=== PATIENT | male | born 1950 | race Caucasian/White ===

== ENCOUNTER 2022-03-22 08:27 | Outpatient (CLI) | payer MEDICARE | END 2022-03-22 08:28 | disposition home or self-care (01) | LOC: CSHCT 08:27 | PROVIDERS: ATTEND Physician Assistant Medical | DX: K52.839 Microscopic colitis, unspecified (principal); K52.832 Lymphocytic colitis; R19.7 Diarrhea, unspecified; K76.89 Other specified diseases of liver; N28.1 Cyst of kidney, acquired; K57.30 Diverticulosis of large intestine without perforation or abscess without bleeding | CPT/HCPCS: 74177; 82565 ==